=== PATIENT | male | born 1980 | race Caucasian/White ===

== ENCOUNTER 2019-12-07 16:17 | Emergency (ER) | payer OTHER ==
[2019-12-07] MEDS ORDERED: Ketorolac INJ* 30 MG/ML 1 ML VIAL IM ONE (16:43)
[2019-12-07] MEDS ORDERED: Cyclobenzaprine TAB* 10 MG PO ONE (16:44)
--- NOTE | 2019-12-07 16:46 | ED ---
Back Pain - HPI Summary HPI Summary: 39-year-old male presents with back pain for the past couple years. He states that it got worse yesterday after he stood up. He states that his radiates down bilateral legs which is not new. Denies any numbness tingling. He states the pain makes it difficult to ambulate and he often has to use a walker. Denies any new injury. No urinary symptoms. No loss of bowel or bladder. No saddle anesthesia. No fevers. He has a history of end-stage liver disease. He has followed up with primary about this but they did not give referral to [facility] yet. He states he took some Tylenol for the pain with minimal relief. - History of Current Complaint Chief Complaint: EDBackInjuryPain Stated Complaint: BACK PAIN PER EMS Time Seen by Provider: 12/07/19 16:36 Pain Intensity: 8 - Allergies/Home Medications Allergies/Adverse Reactions: Allergies Allergy/AdvReac Type Severity Reaction Status Date / Time adhesive Allergy Blisters Verified 08/10/19 15:00 MS Hydrocodone [From Vicodin] Allergy Rash Verified 08/10/19 14:58 perfume Allergy Rash Verified 08/10/19 15:00 CLOTHING DYE Allergy Rash Uncoded 08/10/19 15:00 Home Medications: Home Medications Bupropion XL* [Wellbutrin XL *] 150 mg PO DAILY 12/07/19 [History Confirmed 06/19] Cholecalciferol (Vitamin D3) [Vitamin D3] 1,000 unit PO DAILY 12/07/19 [History Confirmed 12/07/19] Cyanocobalamin (Vitamin B-12) [Vitamin B-12] 500 mcg SL DAILY 12/07/19 [History Confirmed 12/07/19] Escitalopram * [Lexapro *] 20 mg PO DAILY 12/07/19 [History Confirmed 12/07/19] Magnesium Oxide TAB* [MagOx 400 TAB*] 400 mg PO DAILY 12/07/19 [History Confirmed 12/07/19] Nadolol (NF) 20 mg PO DAILY 12/07/19 [History Confirmed 12/07/19] Pantoprazole TAB * [Protonix TAB*] 40 mg PO DAILY 12/07/19 [History Confirmed ] Potassium Chlor TAB* [Klor Con ER TAB*] 20 meq PO DAILY 12/07/19 [History Confirmed 12/07/19] RiFAXimin* [Xifaxan*] 550 mg PO BID 12/07/19 [History Confirmed 12/07/19] Spironolactone (NF) [Spironolactone 50 MG (NF)] 150 mg PO DAILY 12/07/19 [ History Confirmed 12/07/19] Thiamine TAB* [Vitamin B-1 TAB*] 100 mg PO DAILY 12/07/19 [History Confirmed 06/19] Torsemide TAB* [Demadex*] 20 mg PO DAILY 12/07/19 [History Confirmed 12/07/19] PMH/Surg Hx/FS Hx/Imm Hx Endocrine/Hematology History: Reports: Hx Diabetes - DIET CONTROLLED- states no longer Cardiovascular History: Denies: Hx Hypertension, Hx Pacemaker/ICD GI History: Reports: Hx Cirrhosis, Hx Jaundice, Other GI Disorders - hereditary hemochormatosis History: Denies: Hx Renal Disease Sensory History: Denies: Hx Hearing Aid Neurological History: Reports: Other Neuro Impairments/Disorders - tremor Psychiatric History: Denies: Hx Panic Disorder - Cancer History Hx Hematologic Symptoms: Yes - thrombocytopenia, has bruising and purpura - Surgical History Surgery Procedure, Year, and Place: THROAT VARICES-BANDED PER PT-DR QUEZADA WANTS DX OF THROAT TO CLEAR PATIENT - Immunization History Immunizations Up to Date: Yes Infectious Disease History: Yes Infectious Disease History: Reports: Hx Hepatitis - C- body fought off Denies: Traveled Outside the [place] in Last 30 Days - Family History Known Family History: Positive: Hypertension - Social History Alcohol Use: Occasionally Substance Use Type: Reports: Marijuana Smoking Status (MU): Light Every Day Tobacco Smoker Type: Cigarettes Amount Used/How Often: 1/2 PPD Length of Time of Smoking/Using Tobacco: 21 YRS Have You Smoked in the Last Year: Yes Review of Systems Negative: Fever Negative: Chest Pain Negative: Shortness Of Breath Positive: Myalgia - back pain All Other Systems Reviewed And Are Negative: Yes Physical Exam Triage Information Reviewed: Yes Vital Signs On Initial Exam: Initial Vitals Temp Pulse Resp BP Pulse Ox 96.8 F 80 20 116/79 95 12/07/19 16:17 12/07/19 16:17 12/07/19 16:17 12/07/19 16:17 12/07/19 16:17 Vital Signs Reviewed: Yes Appearance: Positive: Well-Appearing Skin: Positive: Warm, Dry Head/Face: Positive: Normal Head/Face Inspection Eyes: Positive: EOMI, CHASE, Other: - jaundice ENT: Positive: Pharynx normal Respiratory/Lung Sounds: Positive: Clear to Auscultation, Breath Sounds Present Cardiovascular: Positive: Normal, RRR Musculoskeletal: Positive: Limited @ - back, Other - tenderness in lower back, good pulses, sensation grossly intact Neurological: Positive: Normal, Reflexes Intact - patella Psychiatric: Positive: Normal Procedures - Sedation Patient Received Moderate/Deep Sedation with Procedure: No Diagnostics - Vital Signs Vital Signs Temp Pulse Resp BP Pulse Ox 12/07/19 16:17 96.8 F 80 20 116/79 95 - Laboratory Lab Statement: Any lab studies that have been ordered have been reviewed, and results considered in the medical decision making process. - Radiology lumbar Radiology Interpretation Completed By: Radiologist Summary of Radiographic Findings: IMPRESSION: 1. FACET OSTEOARTHRITIS WITH DEGENERATIVE DISC DISEASE MOST PRONOUNCED AT L2-L3. 2. CALCULUS OVERLYING THE RIGHT HEMIPELVIS SUGGESTIVE OF A RIGHT URETERAL STONE. - Ultrasound No standard instances Ultrasound Interpretation Completed By: Radiologist Summary of Ultrasound Findings: IMPRESSION: 1. No hydronephrosis, mass, or documented stone. 2. Nonvisualization of the ureteral jets in the urinary bladder. Re-Evaluation - Re-Evaluation First Eval Re-Evaluation Time: 17:51 Comment: feeling better, does have CVA tenderness bilateral worst on left, will get u/s and urine will potential stone present Second Eval Comment: feeling better, u/s shows no stone Back Pain Course/Dx - Course Course Of Treatment: 39-year-old male presents with back pain for the past couple years. He states that it got worse yesterday after he stood up. He states that his radiates down bilateral legs which is not new. Denies any numbness tingling. He states the pain makes it difficult to ambulate and he often has to use a walker. Denies any new injury. No urinary symptoms. No loss of bowel or bladder. No saddle anesthesia. No fevers. He has a history of end-stage liver disease. He has followed up with primary about this but they did not give referral to [facility] specialists yet. He states he took some Tylenol for the pain with minimal relief. On exam tenderness lower back. Positive straight leg raise. Neurovascularly intact. X-ray shows degenerative changes and potential stone. is tender of right flank but has tenderness over entire back and greatest over left flank. patient does not appear to be a renal stone. renal ultrasound shows no hydro so stone less likely. patient states just does not have to urinate and bladder shows 30cc. He states he urinated a lot earlier wihtout any difficulty. patient states that primary if giving referal to [facility] specialists. discussed should be follow up with GI about cirrhosis as he states has not seen them in a while. told follow up with primary. gave short course of muscle relaxers. patient understand and agrees with plan. - Diagnoses Differential Diagnosis/HQI/PQRI: Positive: Fracture, Herniated Disc, Strain Provider Diagnoses: Back pain Discharge ED - Sign-Out/Discharge Documenting (check all that apply): Patient Departure - Discharge Plan Condition: Good Disposition: HOME Prescriptions: Methocarbamol TAB* [Robaxin 500 MG TAB*] 500 mg PO BID #6 tab Patient Education Materials: Back Pain (ED) Referrals: Jonas Littlejohn MD [Primary Care Provider] - Additional Instructions: Take muscle relaxers twice a day Use ibuprofen or Tylenol for pain every 12 hours sparingly ice/heat area, move as much as possible Follow up with primary within 5 days follow up with your GI doctor Return to ED if develop any new or worsening symptoms - Billing Disposition and Condition Condition: GOOD Disposition: Home
[2019-12-07 20:20] VITALS: BP 126/89
== END 2019-12-07 20:07 | disposition home or self-care (01) ==
LOC: ED 16:17
DX: M54.9 Dorsalgia, unspecified (principal); Z79.899 Other long term (current) drug therapy; F17.210 Nicotine dependence, cigarettes, uncomplicated
CPT/HCPCS: 72110; 76775; 96372; 99282; A9270-GY; J1885

== ENCOUNTER 2020-11-08 21:34 | Inpatient (IN) ==
[2020-11-08 23:15] LABS: ABS Basophils 0.1 10^3/ul (0-0.2); ABS Eosinophils 0.2 10^3/ul (0-0.6); ABS Lymphocytes 1.2 10^3/ul (1.0-4.8); ABS Monocytes 0.9 10^3/ul (0-0.8); ABS Neutrophils 2.6 10^3/ul (1.5-7.7); Eosinophil % 3.4 %; Hematocrit 36 % (42-52); Hemoglobin 12.4 g/dL (14.0-18.0); Lymphocyte % 25.2 %; Mean Corpuscular HGB Conc 34 g/dL (31-36); Mean Corpuscular Hemoglobin 37 pg (27-31); Mean Corpuscular Volume 108 fL (80-94); Mean Platelet Volume 8.8 fL (7.4-10.4); Nucleated Red Blood Cells % 0.1; Platelet Count 102 10^3/uL (150-450); Red Blood Count 3.34 10^6 /uL (4.18-5.48); Red Cell Distribution Width 18 % (10-15)
[2020-11-08 23:22] LABS: INR 2.37 (0.82-1.09)
[2020-11-08 23:29] LABS: ALT 31 U/L (7-52); AST 61 U/L (13-39); Albumin 2.5 g/dL (3.2-5.2); Albumin/Globulin Ratio 0.6 (1-3); Alkaline Phosphatase 168 U/L (34-104); Anion Gap 7 mmol/L (2-11); BUN/Creatinine Ratio 16.5 (8-20); Blood Urea Nitrogen 14 mg/dL (6-24); CO2 Carbon Dioxide 24 mmol/L (22-32); Calcium 8.8 mg/dL (8.6-10.3); Chloride 106 mmol/L (101-111); EGFR African American 121.4 (>60); EGFR Non-African American 100.3 (>60); Globulin 3.9 g/dL (2-4); Glucose 61 mg/dL (70-100); Potassium 3.4 mmol/L (3.5-5.0); Sodium 137 mmol/L (135-145); Total Protein 6.4 g/dL (6.4-8.9)
[2020-11-08 23:32] LABS: Troponin I 0.01 ng/mL (<0.03)
[2020-11-08 23:34] LABS: Acetaminophen < 15 mcg/mL; Alcohol, S < 10 mg/dL (<10); Salicylate < 2.50 mg/dL (<30)
[2020-11-09] MEDS ORDERED: Potassium Chlor 20 meq TAB.ER PO ONE (00:16)
[2020-11-09 00:36] LABS: Urine Appearance Clear; Urine Bilirubin 1+ (Negative); Urine Blood 1+ (Negative); Urine Color Amber; Urine Glucose Negative (Negative); Urine Ketones Trace (Negative); Urine Nitrite Negative (Negative); Urine Protein 1+(30 mg/dL) (Negative); Urine Specific Gravity 1.024 (1.010-1.030); Urine Urobilinogen Positive (Negative)
[2020-11-09 00:41] LABS: Urine Bacteria 1+ (Absent); Urine Benzodiazepine Screen None Detected (None Detect); Urine Cannabinoids Screen Presumptive Positive (None Detect); Urine Opiates Screen None Detected (None Detect); Urine Red Blood Cell 2+(6-10/hpf) (Absent); Urine Squamous Epithelial Cell Present (Absent); Urine White Blood Cell 1+(6-10/hpf) (Absent)
[2020-11-09] MEDS ORDERED: Ondansetron 4 mg VIAL 2 MG/ML 2 ml VIAL IV PRN (00:57)
[2020-11-09] MEDS ORDERED: Dextrose 50% Syringe 50 ml 25 GM/50 ML SYRINGE IV PUSH PRN (00:57)
[2020-11-09] MEDS ORDERED: Dextrose 50% Syringe 50 ml 25 GM/50 ML SYRINGE IV PUSH ONE (01:05)
[2020-11-09] MEDS: cefTRIAXone 1 gm/50 mL NS BAG 1 GM/50 ML BAG IVPB SCH ×2 (02:47→22:26)
[2020-11-09] MEDS: NS 0.9% 1000 ml BAG 1,000 ML IV SCH ×2 (02:47→22:29)
[2020-11-09] MEDS: Lactulose 30 ml UDC PO SCH ×5 (02:47→22:26)
[2020-11-09 07:06] LABS: INR 2.33 (0.82-1.09)
[2020-11-09 07:11] LABS: Hematocrit 35 % (42-52); Hemoglobin 11.8 g/dL (14.0-18.0); Mean Corpuscular HGB Conc 34 g/dL (31-36); Mean Corpuscular Hemoglobin 37 pg (27-31); Mean Corpuscular Volume 109 fL (80-94); Red Blood Count 3.17 10^6 /uL (4.18-5.48); Red Cell Distribution Width 18 % (10-15); White Blood Count 4.5 10^3/uL (3.5-10.8)
[2020-11-09 07:23] LABS: Calcium 8.4 mg/dL (8.6-10.3); EGFR African American 128.4 (>60); EGFR Non-African American 106.1 (>60); Potassium 3.6 mmol/L (3.5-5.0)
[2020-11-09] MEDS: Potassium Chlor 20 meq TAB.ER PO SCH (07:39)
[2020-11-09 07:43] LABS: ABS Eosinophils 0.2 10^3/ul (0-0.6); ABS Lymphocytes 1.4 10^3/ul (1.0-4.8); ABS Monocytes 0.9 10^3/ul (0-0.8); ABS Neutrophils 1.9 10^3/ul (1.5-7.7); Eosinophil % 4.4 %; Lymphocyte % 31.6 %; Nucleated Red Blood Cells % 0.2; Platelet Count 92 10^3/uL (150-450)
[2020-11-09] MEDS ORDERED: Artificial Tear OPHTH.OINT 3.5 GM BOTH EYES PRN (08:45)
[2020-11-09 10:48] LABS: Ferritin 213.5 ng/mL (24-336)
[2020-11-09 11:06] LABS: Total Bilirubin 9.9 mg/dL (0.2-1.0)
[2020-11-09] MEDS: CMCS:Ketorolac 10 mg TAB (NF) PO PRN (12:49)
[2020-11-09] MEDS: Dextran 70/Hypromellose Tears Eye Drops 15 ml BTL (for Artificials Tears) BOTH EYES PRN ×2 (15:47→22:47)
[2020-11-10 05:54] LABS: Hematocrit 34 % (42-52); Hemoglobin 11.5 g/dL (14.0-18.0); Mean Corpuscular HGB Conc 34 g/dL (31-36); Mean Corpuscular Hemoglobin 37 pg (27-31); Mean Corpuscular Volume 109 fL (80-94); Mean Platelet Volume 8.8 fL (7.4-10.4); Platelet Count 85 10^3/uL (150-450); Red Cell Distribution Width 19 % (10-15)
[2020-11-10 05:57] LABS: BUN/Creatinine Ratio 13.5 (8-20); Calcium 8.7 mg/dL (8.6-10.3); EGFR African American 105.5 (>60); EGFR Non-African American 87.2 (>60); Magnesium 1.8 mg/dL (1.9-2.7)
[2020-11-10 07:18] LABS: C Reactive Protein 6.35 mg/L (<8.01)
[2020-11-10] MEDS: Potassium Chlor 20 meq TAB.ER PO SCH (08:16)
[2020-11-10] MEDS: Lactulose 30 ml UDC PO SCH ×3 (08:17→17:31)
[2020-11-10] MEDS: Dextran 70/Hypromellose Tears Eye Drops 15 ml BTL (for Artificials Tears) BOTH EYES PRN (13:28)
[2020-11-10] MEDS: CMCS:Ketorolac 10 mg TAB (NF) PO PRN (13:28)
[2020-11-10 15:11] VITALS: BP 117/60
== END 2020-11-10 17:36 | disposition home or self-care (01) | DRG 279 ==
LOC: ED 21:34 → MEDTELE 11-09 00:50
PROVIDERS: ADMIT Internal Medicine; ATTEND Internal Medicine

== ENCOUNTER 2020-12-08 02:41 | Inpatient (IN) ==
[2020-12-08] MEDS ORDERED: NS 0.9% 1000 ml BAG 1,000 ML IV ONE (02:45)
[2020-12-08] MEDS ORDERED: Lactulose 30 ml UDC PO ONE (02:45)
[2020-12-08 03:10] LABS: Hematocrit 36 % (42-52); Hemoglobin 12.2 g/dL (14.0-18.0); Mean Corpuscular HGB Conc 34 g/dL (31-36); Mean Corpuscular Hemoglobin 36 pg (27-31); Mean Corpuscular Volume 106 fL (80-94); Mean Platelet Volume 9.4 fL (7.4-10.4); Platelet Count 101 10^3/uL (150-450); Red Blood Count 3.38 10^6 /uL (4.18-5.48); Red Cell Distribution Width 17 % (10-15); White Blood Count 4.6 10^3/uL (3.5-10.8)
[2020-12-08 03:24] LABS: Albumin 2.3 g/dL (3.2-5.2); Albumin/Globulin Ratio 0.6 (1-3); BUN/Creatinine Ratio 9.3 (8-20); Calcium 8.3 mg/dL (8.6-10.3); EGFR African American 140.3 (>60); EGFR Non-African American 115.9 (>60); Globulin 4.1 g/dL (2-4); Potassium 4.1 mmol/L (3.5-5.0); Total Bilirubin 7.2 mg/dL (0.2-1.0); Total Protein 6.4 g/dL (6.4-8.9)
[2020-12-08 03:26] LABS: Troponin I 0.01 ng/mL (<0.03)
[2020-12-08] MEDS ORDERED: Ondansetron 4 mg VIAL 2 MG/ML 2 ml VIAL IV PRN (03:57)
[2020-12-08 04:42] LABS: Polychromasia 1+
[2020-12-08 04:44] LABS: ABS Eosinophils 0.5 10^3/ul (0-0.6); ABS Lymphocytes 1.8 10^3/ul (1.0-4.8); ABS Monocytes 0.7 10^3/ul (0-0.8); ABS Neutrophils 1.7 10^3/ul (1.5-7.7); Eosinophil % 9.8 %; Lymphocyte % 37.8 %; Nucleated Red Blood Cells % 0.2
[2020-12-08 05:18] LABS: Urine Appearance Clear; Urine Bilirubin Negative (Negative); Urine Blood 1+ (Negative); Urine Color Amber; Urine Glucose Negative (Negative); Urine Ketones Negative (Negative); Urine Nitrite Negative (Negative); Urine Protein Negative (Negative); Urine Specific Gravity 1.017 (1.010-1.030); Urine Urobilinogen Positive (Negative)
[2020-12-08 05:25] LABS: Urine Benzodiazepine Screen None Detected (None Detect); Urine Cannabinoids Screen None Detected (None Detect); Urine Opiates Screen None Detected (None Detect)
[2020-12-08] MEDS ORDERED: Thiamine 100 MG/ML 2 ml VIAL 100 MG, Folic Acid 1 MG, Multiple Vitamin IV ADULT 10 ML i... IV ONE (05:30)
[2020-12-08 05:55] LABS: Urine Bacteria Absent (Absent); Urine Red Blood Cell 1+(3-5/hpf) (Absent); Urine Squamous Epithelial Cell Present (Absent); Urine White Blood Cell Absent (Absent)
[2020-12-08 06:54] LABS: INR 2.1 (0.82-1.09)
[2020-12-08 07:00] LABS: BUN/Creatinine Ratio 9.7 (8-20); Calcium 8.1 mg/dL (8.6-10.3); EGFR African American 147.1 (>60); EGFR Non-African American 121.5 (>60); Potassium 3.9 mmol/L (3.5-5.0)
[2020-12-08 07:51] LABS: ABS Eosinophils 0.4 10^3/ul (0-0.6); ABS Lymphocytes 1.5 10^3/ul (1.0-4.8); ABS Monocytes 0.8 10^3/ul (0-0.8); ABS Neutrophils 1.7 10^3/ul (1.5-7.7); Eosinophil % 8.3 %; Hematocrit 36 % (42-52); Lymphocyte % 34.6 %; Mean Corpuscular HGB Conc 34 g/dL (31-36); Mean Corpuscular Hemoglobin 36 pg (27-31); Mean Corpuscular Volume 107 fL (80-94); Mean Platelet Volume 9.7 fL (7.4-10.4); Nucleated Red Blood Cells % 0.2; Platelet Count 102 10^3/uL (150-450); Red Blood Count 3.32 10^6 /uL (4.18-5.48); Red Cell Distribution Width 17 % (10-15); White Blood Count 4.4 10^3/uL (3.5-10.8)
[2020-12-08] MEDS: Heparin 5000 UNITS/ML 1 mL VIAL SUBCUT SCH ×3 (08:02→20:11)
[2020-12-08] MEDS: Potassium Chlor 20 meq TAB.ER PO SCH (08:02)
[2020-12-08] MEDS ORDERED: LORazepam 2 mg VIAL 1 ml IV PUSH PRN (09:02)
[2020-12-08] MEDS ORDERED: Lorazepam PYXIS KEY PRN (09:02)
[2020-12-08] MEDS: Multivitamins/Minerals TAB PO SCH (11:32)
[2020-12-08] MEDS: Lactulose 30 ml UDC PO SCH ×4 (11:32→20:11)
[2020-12-08] MEDS ORDERED: Lactulose 300 ML for PR 200 GM/300 ML BTL PR SCH (13:00)
[2020-12-08] MEDS: Lactulose 300 ML for PR 200 GM/300 ML BTL PR SCH ×3 (13:24→20:18)
[2020-12-09] MEDS: Heparin 5000 UNITS/ML 1 mL VIAL SUBCUT SCH ×2 (05:39→13:16)
[2020-12-09 07:25] LABS: ABS Basophils 0.1 10^3/ul (0-0.2); ABS Eosinophils 0.3 10^3/ul (0-0.6); ABS Lymphocytes 1.1 10^3/ul (1.0-4.8); ABS Monocytes 0.6 10^3/ul (0-0.8); ABS Neutrophils 2.1 10^3/ul (1.5-7.7); Eosinophil % 6.3 %; Hematocrit 35 % (42-52); Lymphocyte % 26.8 %; Mean Corpuscular HGB Conc 34 g/dL (31-36); Mean Corpuscular Hemoglobin 37 pg (27-31); Mean Corpuscular Volume 108 fL (80-94); Mean Platelet Volume 9.2 fL (7.4-10.4); Nucleated Red Blood Cells % 0.1; Platelet Count 86 10^3/uL (150-450); Red Blood Count 3.25 10^6 /uL (4.18-5.48); Red Cell Distribution Width 17 % (10-15); White Blood Count 4.2 10^3/uL (3.5-10.8)
[2020-12-09 07:26] LABS: INR 2.07 (0.82-1.09)
[2020-12-09 07:52] LABS: Albumin 2.1 g/dL (3.2-5.2); Calcium 7.8 mg/dL (8.6-10.3); Magnesium 1.6 mg/dL (1.9-2.7); Total Bilirubin 9.2 mg/dL (0.2-1.0)
[2020-12-09 07:58] LABS: Albumin/Globulin Ratio 0.5 (1-3); BUN/Creatinine Ratio 8.2 (8-20); EGFR African American 121.4 (>60); EGFR Non-African American 100.3 (>60); Globulin 4.2 g/dL (2-4); Total Protein 6.3 g/dL (6.4-8.9)
[2020-12-09] MEDS ORDERED: Pneumococcal Vac 23-Polyvalent IM ONE (09:00)
[2020-12-09] MEDS: Lactulose 30 ml UDC PO SCH ×2 (09:15→13:16)
[2020-12-09] MEDS: Multivitamins/Minerals TAB PO SCH (09:16)
[2020-12-09] MEDS: Potassium Chlor 20 meq TAB.ER PO SCH (09:16)
[2020-12-09] MEDS: Lactulose 300 ML for PR 200 GM/300 ML BTL PR SCH ×2 (09:19→13:16)
[2020-12-09 12:20] VITALS: BP 138/75
== END 2020-12-09 16:00 | disposition home or self-care (01) | DRG 279 ==
LOC: ED 02:41 → MEDTELE 03:53
PROVIDERS: ADMIT Internal Medicine; ATTEND Internal Medicine

== ENCOUNTER 2021-05-09 14:26 | Inpatient (IN) ==
[2021-05-09] MEDS ORDERED: Piperacillin/Tazobac ADVAN 3.375 GM in NS 0.9% 100 ml BAG 100 ML IVPB ONE (14:42)
[2021-05-09] MEDS ORDERED: Ondansetron 4 mg VIAL 2 MG/ML 2 ml VIAL IV ONE (14:49)
[2021-05-09] MEDS ORDERED: Vancomycin 2,000 MG in NS 0.9% 250 ml 250 ML IVPB SCH (15:00)
[2021-05-09 15:24] LABS: ALT 11 U/L (7-52); AST 30 U/L (13-39); Albumin 1.9 g/dL (3.2-5.2); Albumin/Globulin Ratio 0.4 (1-3); Alkaline Phosphatase 110 U/L (35-149); Anion Gap 6 mmol/L (2-11); Blood Urea Nitrogen 6 mg/dL (6-24); C Reactive Protein 9.06 mg/L (<8.01); CO2 Carbon Dioxide 26 mmol/L (22-32); Calcium 7.7 mg/dL (8.6-10.3); Chloride 100 mmol/L (101-111); EGFR African American 118.2 (>60); EGFR Non-African American 97.7 (>60); Glucose 98 mg/dL (70-100); Potassium 3.3 mmol/L (3.5-5.0); Sodium 132 mmol/L (135-145); Total Protein 6.9 g/dL (6.4-8.9)
[2021-05-09] MEDS ORDERED: Vancomycin 2,000 MG in NS 0.9% 500 ml BAG 500 ML IVPB ONE (15:30)
[2021-05-09 15:43] LABS: Troponin I 0.03 ng/mL (<0.03)
[2021-05-09 15:48] LABS: Acetaminophen < 15 mcg/mL; Alcohol, S 48 mg/dL (<10); Salicylate < 2.50 mg/dL (<30)
[2021-05-09 15:50] LABS: ABS Lymphocytes 0.6 10^3/ul (1.0-4.8); ABS Monocytes 0.5 10^3/ul (0-0.8); ABS Neutrophils 4.8 10^3/ul (1.5-7.7); Hematocrit 28 % (42-52); Hemoglobin 9.6 g/dL (14.0-18.0); Lymphocyte % 10.3 %; Mean Corpuscular HGB Conc 34 g/dL (31-36); Mean Corpuscular Hemoglobin 35 pg (27-31); Mean Corpuscular Volume 104 fL (80-94); Platelet Count 84 10^3/uL (150-450); Red Blood Count 2.73 10^6 /uL (4.18-5.48); Red Cell Distribution Width 22 % (10-15); White Blood Count 5.9 10^3/uL (3.5-10.8)
[2021-05-09 16:03] LABS: TSH Ultra Thyroid Stim Horm 0.33 mcIU/mL (0.34-5.60)
[2021-05-09] MEDS ORDERED: NS 0.9% 1000 ml BAG 1,000 ML IV ONE ×2 (16:26)
[2021-05-09] MEDS ORDERED: Ondansetron 4 mg VIAL 2 MG/ML 2 ml VIAL IV PRN (18:38)
[2021-05-09] MEDS ORDERED: Al Hydrox/Mg Hydrox/Simet LIQ 30 ML UDC PO PRN (18:38)
[2021-05-09] MEDS ORDERED: Enoxaparin 40 MG/0.4 ML SYR SUBCUT SCH (21:00)
[2021-05-10 03:41] LABS: ABS Lymphocytes 0.7 10^3/ul (1.0-4.8); ABS Monocytes 0.7 10^3/ul (0-0.8); ABS Neutrophils 4.7 10^3/ul (1.5-7.7); Eosinophil % 0.2 %; Hematocrit 27 % (42-52); Hemoglobin 9.2 g/dL (14.0-18.0); Lymphocyte % 12.2 %; Mean Corpuscular HGB Conc 35 g/dL (31-36); Mean Corpuscular Hemoglobin 36 pg (27-31); Mean Corpuscular Volume 103 fL (80-94); Mean Platelet Volume 9.2 fL (7.4-10.4); Nucleated Red Blood Cells % 0.1; Platelet Count 81 10^3/uL (150-450); Red Blood Count 2.58 10^6 /uL (4.18-5.48); Red Cell Distribution Width 21 % (10-15); White Blood Count 6.1 10^3/uL (3.5-10.8)
[2021-05-10] MEDS: Multivitamins/Minerals TAB PO SCH ×2 (03:46→10:04)
[2021-05-10] MEDS: Lactulose 30 ml UDC PO SCH ×4 (03:50→19:24)
[2021-05-10 04:03] LABS: Troponin I 0.03 ng/mL (<0.03)
[2021-05-10 04:19] LABS: Albumin 1.7 g/dL (3.2-5.2); Anion Gap 3 mmol/L (2-11); CO2 Carbon Dioxide 26 mmol/L (22-32); Calcium 7.3 mg/dL (8.6-10.3); Chloride 100 mmol/L (101-111); Potassium 3.4 mmol/L (3.5-5.0); Sodium 129 mmol/L (135-145)
[2021-05-10 04:25] LABS: ALT 11 U/L (7-52); AST 32 U/L (13-39); Albumin/Globulin Ratio 0.3 (1-3); Alkaline Phosphatase 104 U/L (35-149); Blood Urea Nitrogen 8 mg/dL (6-24); EGFR African American 99.5 (>60); EGFR Non-African American 82.2 (>60); Globulin 4.9 g/dL (2-4); Glucose 100 mg/dL (70-100); Total Protein 6.6 g/dL (6.4-8.9)
[2021-05-10 04:44] LABS: Polychromasia 1+
[2021-05-10 04:58] LABS: Urine Appearance Turbid; Urine Color Red; Urine Specific Gravity 1.024 (1.002-1.030)
[2021-05-10 05:10] LABS: Urine Bacteria Absent (Absent); Urine Red Blood Cell 3+(>10/hpf) (Absent); Urine White Blood Cell 3+(>20/hpf) (Absent)
[2021-05-10] MEDS ORDERED: Magnesium Sulfate 2 gm BAG 2 GM/50 ML BAG IVPB ONE (08:07)
[2021-05-10] MEDS: KCL 10 MEQ/50 ML IVPREMIX 10 MEQ/50 ML BAG IV SCH ×3 (09:49→20:22)
[2021-05-10] MEDS: Enoxaparin 40 MG/0.4 ML SYR SUBCUT SCH (10:02)
[2021-05-10] MEDS: Cholecalciferol (VIT D3) 1,000 unit TAB PO SCH (10:03)
[2021-05-10 10:16] LABS: Troponin I 0.02 ng/mL (<0.03)
[2021-05-10 12:22] LABS: CO2 Carbon Dioxide 21 mmol/L (22-32); Calcium 7.4 mg/dL (8.6-10.3); Chloride 100 mmol/L (101-111); Sodium 129 mmol/L (135-145)
[2021-05-10 12:28] LABS: Blood Urea Nitrogen 9 mg/dL (6-24); EGFR African American 97.3 (>60); EGFR Non-African American 80.4 (>60); Glucose 109 mg/dL (70-100)
[2021-05-10 13:14] LABS: Anion Gap 8 mmol/L (2-11)
[2021-05-10 19:39] LABS: Magnesium 1.5 mg/dL (1.9-2.7)
[2021-05-10] MEDS ORDERED: Magnesium Sulfate IV 3 GM in NS 0.9% 100 ml BAG 100 ML IVPB ONE (19:56)
[2021-05-10] MEDS ORDERED: KCL premix 10 MEQ/50 ML x 1 TIME IV ONE (21:00)
[2021-05-11 07:38] LABS: Hematocrit 27 % (42-52); Hemoglobin 9.5 g/dL (14.0-18.0); Mean Corpuscular HGB Conc 36 g/dL (31-36); Mean Corpuscular Hemoglobin 37 pg (27-31); Mean Corpuscular Volume 103 fL (80-94); Mean Platelet Volume 9.3 fL (7.4-10.4); Platelet Count 80 10^3/uL (150-450); Red Blood Count 2.61 10^6 /uL (4.18-5.48); Red Cell Distribution Width 21 % (10-15)
[2021-05-11 07:39] LABS: Calcium 7.5 mg/dL (8.6-10.3); EGFR African American 58.5 (>60); EGFR Non-African American 48.4 (>60); Magnesium 1.7 mg/dL (1.9-2.7); Potassium 3.2 mmol/L (3.5-5.0)
[2021-05-11] MEDS ORDERED: Magnesium Sulf 4 GM/100 ML IV 4,000 MG/100 ML BAG IVPB ONE (07:56)
[2021-05-11 08:33] LABS: Polychromasia 1+
[2021-05-11 08:34] LABS: ABS Eosinophils 0.2 10^3/ul (0-0.6); ABS Lymphocytes 1.1 10^3/ul (1.0-4.8); ABS Monocytes 0.9 10^3/ul (0-0.8); ABS Neutrophils 2.8 10^3/ul (1.5-7.7); Eosinophil % 3.3 %; Lymphocyte % 21.7 %; Nucleated Red Blood Cells % 0.2
[2021-05-11] MEDS: Cholecalciferol (VIT D3) 1,000 unit TAB PO SCH (08:38)
[2021-05-11] MEDS: Multivitamins/Minerals TAB PO SCH (08:39)
[2021-05-11] MEDS: Enoxaparin 40 MG/0.4 ML SYR SUBCUT SCH (08:39)
[2021-05-11] MEDS: Lactulose 30 ml UDC PO SCH ×3 (08:40→20:20)
[2021-05-11] MEDS: KCL 10 MEQ/50 ML IVPREMIX 10 MEQ/50 ML BAG IV SCH ×2 (11:07→11:40)
[2021-05-11] MEDS: KCL 20 MEQ/100 ML IVPREMIX 20 MEQ/100 ML BAG IV SCH ×3 (11:52→16:47)
[2021-05-11 16:42] LABS: Calcium 7.7 mg/dL (8.6-10.3); EGFR African American 51.4 (>60); EGFR Non-African American 42.5 (>60); Potassium 3.4 mmol/L (3.5-5.0)
[2021-05-11] MEDS ORDERED: Potassium Chlor 20 meq TAB.ER PO ONE (17:39)
[2021-05-11] MEDS ORDERED: KCL 20 MEQ/100 ML IVPREMIX 20 MEQ/100 ML BAG IV ONE (20:21)
[2021-05-11] MEDS ORDERED: Magnesium Sulfate 2 gm BAG 2 GM/50 ML BAG IVPB ONE (20:24)
[2021-05-11 20:26] LABS: Magnesium 2.2 mg/dL (1.9-2.7)
[2021-05-12 06:11] LABS: Calcium 7.7 mg/dL (8.6-10.3)
[2021-05-12 06:16] LABS: EGFR African American 47.4 (>60); EGFR Non-African American 39.2 (>60)
[2021-05-12 06:38] LABS: Potassium 3.6 mmol/L (3.5-5.0)
[2021-05-12] MEDS: Lactulose 30 ml UDC PO SCH ×3 (09:43→21:36)
[2021-05-12] MEDS: Cholecalciferol (VIT D3) 1,000 unit TAB PO SCH (09:46)
[2021-05-12] MEDS: Enoxaparin 40 MG/0.4 ML SYR SUBCUT SCH (09:47)
[2021-05-12] MEDS: Multivitamins/Minerals TAB PO SCH (09:47)
[2021-05-12 19:28] LABS: Urine Appearance Cloudy; Urine Bilirubin Negative (Negative); Urine Blood 3+ (Negative); Urine Color Amber; Urine Glucose Negative (Negative); Urine Ketones Negative (Negative); Urine Nitrite Negative (Negative); Urine Protein Negative (Negative); Urine Specific Gravity 1.012 (1.002-1.030); Urine Urobilinogen Negative (Negative)
[2021-05-12 19:32] LABS: Urine Bacteria 1+ (Absent); Urine Red Blood Cell 3+(>10/hpf) (Absent); Urine Squamous Epithelial Cell Present (Absent); Urine White Blood Cell 2+(11-20/hpf) (Absent)
[2021-05-13 06:00] LABS: ABS Eosinophils 0.3 10^3/ul (0-0.6); ABS Lymphocytes 1.5 10^3/ul (1.0-4.8); ABS Neutrophils 1.8 10^3/ul (1.5-7.7); Hematocrit 28 % (42-52); Hemoglobin 9.5 g/dL (14.0-18.0); Lymphocyte % 32.7 %; Mean Corpuscular HGB Conc 35 g/dL (31-36); Mean Corpuscular Hemoglobin 36 pg (27-31); Mean Corpuscular Volume 103 fL (80-94); Mean Platelet Volume 9.2 fL (7.4-10.4); Nucleated Red Blood Cells % 0.1; Platelet Count 90 10^3/uL (150-450); Red Blood Count 2.67 10^6 /uL (4.18-5.48); Red Cell Distribution Width 22 % (10-15); White Blood Count 4.7 10^3/uL (3.5-10.8)
[2021-05-13 06:04] LABS: Calcium 7.9 mg/dL (8.6-10.3); EGFR Non-African American 37.2 (>60); Potassium 3.5 mmol/L (3.5-5.0)
[2021-05-13] MEDS: Enoxaparin 40 MG/0.4 ML SYR SUBCUT SCH (08:26)
[2021-05-13] MEDS: Lactulose 30 ml UDC PO SCH ×3 (08:26→20:10)
[2021-05-13] MEDS: Cholecalciferol (VIT D3) 1,000 unit TAB PO SCH (08:28)
[2021-05-13] MEDS: Multivitamins/Minerals TAB PO SCH (08:29)
[2021-05-14 04:59] LABS: Hematocrit 28 % (42-52); Hemoglobin 9.5 g/dL (14.0-18.0)
[2021-05-14 05:10] LABS: INR 1.75 (0.82-1.09)
[2021-05-14 05:39] LABS: Albumin 1.9 g/dL (3.2-5.2); Albumin/Globulin Ratio 0.4 (1-3); Calcium 8.3 mg/dL (8.6-10.3); EGFR African American 43.5 (>60); EGFR Non-African American 35.9 (>60); Globulin 5.3 g/dL (2-4); Potassium 3.4 mmol/L (3.5-5.0); Total Bilirubin 4.1 mg/dL (0.2-1.0); Total Protein 7.2 g/dL (6.4-8.9)
[2021-05-14 06:38] LABS: Indirect Bilirubin 2.3 mg/dL (0.3-1.0)
[2021-05-14] MEDS: Multivitamins/Minerals TAB PO SCH (08:37)
[2021-05-14] MEDS: Cholecalciferol (VIT D3) 1,000 unit TAB PO SCH (08:37)
[2021-05-14] MEDS: Lactulose 30 ml UDC PO SCH ×3 (08:38→20:49)
[2021-05-14] MEDS: Enoxaparin 40 MG/0.4 ML SYR SUBCUT SCH (08:38)
[2021-05-14 09:37] LABS: Magnesium 1.7 mg/dL (1.9-2.7)
[2021-05-14 09:42] LABS: Phosphorus 4.1 mg/dL (2.5-5.0)
[2021-05-14] MEDS ORDERED: Potassium Chlor 20 meq TAB.ER PO ONE (15:34)
[2021-05-14] MEDS ORDERED: Magnesium Sulf 4 GM/100 ML IV 4,000 MG/100 ML BAG IVPB ONE (18:45)
[2021-05-15 06:34] LABS: ABS Basophils 0.1 10^3/ul (0-0.2); ABS Eosinophils 0.3 10^3/ul (0-0.6); ABS Lymphocytes 1.5 10^3/ul (1.0-4.8); ABS Monocytes 0.9 10^3/ul (0-0.8); ABS Neutrophils 2.4 10^3/ul (1.5-7.7); Hematocrit 30 % (42-52); Hemoglobin 10.5 g/dL (14.0-18.0); Mean Corpuscular HGB Conc 35 g/dL (31-36); Mean Corpuscular Hemoglobin 36 pg (27-31); Mean Corpuscular Volume 103 fL (80-94); Mean Platelet Volume 9.5 fL (7.4-10.4); Nucleated Red Blood Cells % 0.2; Platelet Count 114 10^3/uL (150-450); Red Blood Count 2.89 10^6 /uL (4.18-5.48); Red Cell Distribution Width 20 % (10-15); White Blood Count 5.1 10^3/uL (3.5-10.8)
[2021-05-15 06:58] LABS: Potassium 3.5 mmol/L (3.5-5.0)
[2021-05-15] MEDS: Cholecalciferol (VIT D3) 1,000 unit TAB PO SCH (08:18)
[2021-05-15] MEDS: Multivitamins/Minerals TAB PO SCH (08:18)
[2021-05-15] MEDS: Enoxaparin 40 MG/0.4 ML SYR SUBCUT SCH (08:22)
[2021-05-15] MEDS: Lactulose 30 ml UDC PO SCH ×3 (08:57→19:54)
[2021-05-16 09:25] LABS: ABS Eosinophils 0.3 10^3/ul (0-0.6); ABS Lymphocytes 1.5 10^3/ul (1.0-4.8); ABS Monocytes 0.8 10^3/ul (0-0.8); Eosinophil % 5.6 %; Hematocrit 29 % (42-52); Hemoglobin 10.1 g/dL (14.0-18.0); Lymphocyte % 33.7 %; Mean Corpuscular HGB Conc 34 g/dL (31-36); Mean Corpuscular Hemoglobin 36 pg (27-31); Mean Corpuscular Volume 104 fL (80-94); Mean Platelet Volume 9.5 fL (7.4-10.4); Nucleated Red Blood Cells % 0.1; Platelet Count 113 10^3/uL (150-450); Red Blood Count 2.83 10^6 /uL (4.18-5.48); Red Cell Distribution Width 19 % (10-15); White Blood Count 4.6 10^3/uL (3.5-10.8)
[2021-05-16 09:50] LABS: Calcium 9.1 mg/dL (8.6-10.3); EGFR African American 46.3 (>60); EGFR Non-African American 38.3 (>60); Potassium 3.6 mmol/L (3.5-5.0)
[2021-05-16] MEDS: Cholecalciferol (VIT D3) 1,000 unit TAB PO SCH (12:25)
[2021-05-16] MEDS: Lactulose 30 ml UDC PO SCH ×3 (12:29→21:14)
[2021-05-16] MEDS: Multivitamins/Minerals TAB PO SCH (12:31)
[2021-05-16] MEDS: Enoxaparin 40 MG/0.4 ML SYR SUBCUT SCH (12:33)
[2021-05-17 07:11] LABS: Albumin 1.8 g/dL (3.2-5.2); Albumin/Globulin Ratio 0.3 (1-3); EGFR African American 46.9 (>60); EGFR Non-African American 38.7 (>60); Globulin 5.3 g/dL (2-4); Potassium 3.3 mmol/L (3.5-5.0); Total Protein 7.1 g/dL (6.4-8.9)
[2021-05-17] MEDS ORDERED: Potassium Chlor 20 meq TAB.ER PO ONE (07:43)
[2021-05-17] MEDS: Lactulose 30 ml UDC PO SCH (08:12)
[2021-05-17] MEDS: Multivitamins/Minerals TAB PO SCH (08:13)
[2021-05-17] MEDS: Cholecalciferol (VIT D3) 1,000 unit TAB PO SCH (08:13)
[2021-05-17] MEDS: Enoxaparin 40 MG/0.4 ML SYR SUBCUT SCH (08:14)
[2021-05-17 11:59] VITALS: BP 122/62
== END 2021-05-17 11:55 | disposition home or self-care (01) | DRG 279 ==
LOC: EDHOLD 14:26 → ED 14:26 → MEDTELE 05-10 02:35
PROVIDERS: ADMIT Hospitalist; ATTEND Internal Medicine

== ENCOUNTER 2021-08-06 12:07 | Inpatient (IN) ==
[2021-08-06] MEDS ORDERED: Thiamine 100 MG/ML 2 ml VIAL 100 MG, Folic Acid IV 1 MG, Multiple Vitamin IV ADULT 10 M... IV ONE (12:11)
[2021-08-06 12:36] LABS: Hematocrit 31 % (42-52); Hemoglobin 10.5 g/dL (14.0-18.0); Mean Corpuscular HGB Conc 34 g/dL (31-36); Mean Corpuscular Hemoglobin 34 pg (27-31); Mean Corpuscular Volume 99 fL (80-94); Mean Platelet Volume 9.6 fL (7.4-10.4); Platelet Count 191 10^3/uL (150-450); Red Blood Count 3.14 10^6 /uL (4.18-5.48); Red Cell Distribution Width 16 % (10-15); White Blood Count 5.2 10^3/uL (3.5-10.8)
[2021-08-06 12:59] LABS: ALT 18 U/L (7-52); Albumin 2.6 g/dL (3.2-5.2); Albumin/Globulin Ratio 0.5 (1-3); Alkaline Phosphatase 194 U/L (35-149); Blood Urea Nitrogen 6 mg/dL (6-24); CO2 Carbon Dioxide 27 mmol/L (22-32); Calcium 8.6 mg/dL (8.6-10.3); Chloride 102 mmol/L (101-111); EGFR African American 86.5 (>60); EGFR Non-African American 71.5 (>60); Globulin 5.7 g/dL (2-4); Glucose 104 mg/dL (70-100); Sodium 135 mmol/L (135-145); Total Protein 8.3 g/dL (6.4-8.9)
[2021-08-06 13:01] LABS: INR 1.68 (0.86-1.15)
[2021-08-06 13:01] LABS: Urine Appearance Clear; Urine Bilirubin Negative (Negative); Urine Blood 2+ (Negative); Urine Color Straw; Urine Glucose Negative (Negative); Urine Ketones Negative (Negative); Urine Nitrite Negative (Negative); Urine Protein Negative (Negative); Urine Specific Gravity 1.004 (1.002-1.030); Urine Urobilinogen Negative (Negative)
[2021-08-06 13:04] LABS: Troponin I 0.01 ng/mL (<0.03)
[2021-08-06 13:18] LABS: Urine Bacteria Absent (Absent); Urine Red Blood Cell 3+(>10/hpf) (Absent); Urine White Blood Cell Absent (Absent)
[2021-08-06 13:20] LABS: Alcohol, S 116 mg/dL (<13); Salicylate < 2.50 mg/dL (<30)
[2021-08-06 13:27] LABS: Anion Gap 6 mmol/L (2-11)
[2021-08-06 14:32] LABS: Potassium Redraw 3.4 mmol/L (3.5-5.0)
[2021-08-06] MEDS ORDERED: Lactulose 30 ml UDC PO ONE (15:05)
[2021-08-06 15:43] LABS: RBC Morphology Normal (Normal)
[2021-08-06 15:44] LABS: ABS Eosinophils 0.6 10^3/ul (0-0.6); ABS Lymphocytes 1.5 10^3/ul (1.0-4.8); ABS Monocytes 0.7 10^3/ul (0-0.8); ABS Neutrophils 2.4 10^3/ul (1.5-7.7); Eosinophil % 10.9 %; Lymphocyte % 28.5 %
[2021-08-06] MEDS ORDERED: Lactulose 300 ML for PR 200 GM/300 ML BTL PR SCH (17:00)
[2021-08-06] MEDS ORDERED: Lorazepam PYXIS KEY PRN (17:20)
[2021-08-06] MEDS ORDERED: LORazepam 2 mg VIAL 1 ml IV PUSH ONE (17:20)
[2021-08-06] MEDS ORDERED: Potassium Chlor 20 meq TAB.ER PO ONE (18:47)
[2021-08-06] MEDS ORDERED: Albuterol HFA INHALER 8 gm MDI INH PRN (19:43)
[2021-08-06] MEDS ORDERED: Dexamethasone IV 4 MG/ML VIAL 1 ml VIAL IV SLOW PU SCH (20:00)
[2021-08-06] MEDS: Lactulose 30 ml UDC PO SCH (20:37)
[2021-08-06] MEDS: Heparin 5000 UNITS/ML 1 mL VIAL SUBCUT SCH (20:38)
[2021-08-07] MEDS: Nystatin TOP POWDER 15 GM BTL TOPICAL SCH ×3 (01:34→20:54)
[2021-08-07] MEDS: Dexamethasone IV 4 MG/ML VIAL 1 ml VIAL IV SLOW PU SCH ×2 (03:21→09:43)
[2021-08-07] MEDS: Heparin 5000 UNITS/ML 1 mL VIAL SUBCUT SCH ×3 (05:15→20:54)
[2021-08-07 07:57] LABS: ABS Lymphocytes 0.7 10^3/ul (1.0-4.8); ABS Monocytes 0.1 10^3/ul (0-0.8); ABS Neutrophils 3.2 10^3/ul (1.5-7.7); Eosinophil % 0.1 %; Hematocrit 29 % (42-52); Hemoglobin 9.9 g/dL (14.0-18.0); Lymphocyte % 18.8 %; Mean Corpuscular HGB Conc 35 g/dL (31-36); Mean Corpuscular Hemoglobin 34 pg (27-31); Mean Corpuscular Volume 99 fL (80-94); Mean Platelet Volume 9.1 fL (7.4-10.4); Nucleated Red Blood Cells % 0.1; Platelet Count 154 10^3/uL (150-450); Red Cell Distribution Width 16 % (10-15)
[2021-08-07 08:00] LABS: INR 1.89 (0.86-1.15)
[2021-08-07 08:10] LABS: Albumin 2.2 g/dL (3.2-5.2); Albumin/Globulin Ratio 0.4 (1-3); Calcium 8.2 mg/dL (8.6-10.3); EGFR African American 75.7 (>60); EGFR Non-African American 62.6 (>60); Globulin 5.1 g/dL (2-4); Potassium 3.5 mmol/L (3.5-5.0); Total Bilirubin 5.1 mg/dL (0.2-1.0); Total Protein 7.3 g/dL (6.4-8.9)
[2021-08-07] MEDS: Multivitamins/Minerals TAB PO SCH (09:42)
[2021-08-07] MEDS: Potassium Chlor 20 meq TAB.ER PO SCH (09:43)
[2021-08-07] MEDS: Lactulose 30 ml UDC PO SCH ×3 (09:43→20:54)
[2021-08-07 09:44] LABS: Magnesium 1.3 mg/dL (1.9-2.7)
[2021-08-07] MEDS ORDERED: KCL 20 MEQ/100 ML IVPREMIX 20 MEQ/100 ML BAG IV ONE ×2 (09:44→14:28)
[2021-08-07] MEDS ORDERED: Magnesium Sulfate IV 3 GM in NS 0.9% 100 ml BAG 100 ML IVPB ONE (14:27)
[2021-08-07] MEDS: LORazepam 2 mg VIAL 1 ml IV PUSH SCH (20:54)
[2021-08-08] MEDS: LORazepam 2 mg VIAL 1 ml IV PUSH SCH (01:03)
[2021-08-08 06:02] LABS: Albumin 2.2 g/dL (3.2-5.2); Albumin/Globulin Ratio 0.4 (1-3); Calcium 8.4 mg/dL (8.6-10.3); EGFR African American 56.5 (>60); EGFR Non-African American 46.7 (>60); Magnesium 1.9 mg/dL (1.9-2.7); Potassium 3.6 mmol/L (3.5-5.0); Total Bilirubin 4.9 mg/dL (0.2-1.0); Total Protein 7.2 g/dL (6.4-8.9)
[2021-08-08] MEDS: Heparin 5000 UNITS/ML 1 mL VIAL SUBCUT SCH ×3 (09:14→21:19)
[2021-08-08] MEDS: Multivitamins/Minerals TAB PO SCH (09:14)
[2021-08-08] MEDS: Nystatin TOP POWDER 15 GM BTL TOPICAL SCH ×2 (09:14→21:27)
[2021-08-08] MEDS: Lactulose 30 ml UDC PO SCH ×3 (09:14→21:26)
[2021-08-08] MEDS: Potassium Chlor 20 meq TAB.ER PO SCH (09:15)
[2021-08-08] MEDS ORDERED: Magnesium Sulfate 2 gm BAG 2 GM/50 ML BAG IVPB ONE (13:51)
[2021-08-08] MEDS ORDERED: KCL 10 MEQ/50 ML IVPREMIX 10 MEQ/50 ML BAG IV ONE (13:51)
[2021-08-09 05:15] LABS: Albumin 2.2 g/dL (3.2-5.2); Albumin/Globulin Ratio 0.4 (1-3); Calcium 8.2 mg/dL (8.6-10.3); EGFR African American 61.2 (>60); EGFR Non-African American 50.5 (>60); Globulin 4.9 g/dL (2-4); Magnesium 1.8 mg/dL (1.9-2.7); Potassium 3.3 mmol/L (3.5-5.0); Total Bilirubin 3.6 mg/dL (0.2-1.0); Total Protein 7.1 g/dL (6.4-8.9)
[2021-08-09] MEDS: Heparin 5000 UNITS/ML 1 mL VIAL SUBCUT SCH ×2 (05:23→13:32)
[2021-08-09] MEDS ORDERED: Magnesium Sulfate IV 3 GM in NS 0.9% 100 ml BAG 100 ML IVPB ONE (05:56)
[2021-08-09] MEDS: KCL 20 MEQ/100 ML IVPREMIX 20 MEQ/100 ML BAG IV SCH ×2 (10:35→13:48)
[2021-08-09] MEDS: Potassium Chlor 20 meq TAB.ER PO SCH (10:43)
[2021-08-09] MEDS: Lactulose 30 ml UDC PO SCH ×3 (10:43→13:33)
[2021-08-09] MEDS: Multivitamins/Minerals TAB PO SCH (10:43)
[2021-08-09] MEDS: Nystatin TOP POWDER 15 GM BTL TOPICAL SCH (10:44)
[2021-08-09 14:59] VITALS: BP 113/57
== END 2021-08-09 18:05 | disposition home or self-care (01) | DRG 279 ==
LOC: MED 12:07 → ED 12:07 → SUATTDRO 17:52
PROVIDERS: ADMIT Student in an Organized Health Care Education/Training Program; ATTEND Internal Medicine

== ENCOUNTER 2022-02-27 21:06 | Inpatient (IN) ==
[2022-02-27 23:13] LABS: Activated Partial Thrombo Time 43.1 seconds (26.0-38.0); INR 2.56 (0.86-1.15)
[2022-02-27] MEDS ORDERED: Lactated Ringers 1000 ml BAG 1,000 ML IV ONE (23:14)
[2022-02-27 23:54] LABS: Albumin 2.1 g/dL (3.2-5.2); Albumin/Globulin Ratio 0.4 (1-3); C Reactive Protein 2.86 mg/L (<8.01); Calcium 7.1 mg/dL (8.6-10.3); Globulin 4.7 g/dL (2-4); Total Bilirubin 10.2 mg/dL (0.2-1.0); Total Protein 6.8 g/dL (6.4-8.9); eGFR CKD-EPI 86.1 (>60)
[2022-02-28 00:02] LABS: Potassium 2.4 mmol/L (3.5-5.0)
[2022-02-28] MEDS ORDERED: Potassium Chlor 20 meq TAB.ER PO ONE (00:07)
[2022-02-28 00:31] LABS: ABS Eosinophils 0.2 10^3/ul (0-0.6); ABS Lymphocytes 0.9 10^3/ul (1.0-4.8); ABS Monocytes 0.9 10^3/ul (0-0.8); Hematocrit 32 % (42-52); Hemoglobin 10.7 g/dL (14.0-18.0); Lymphocyte % 18.1 %; Mean Corpuscular HGB Conc 34 g/dL (31-36); Mean Corpuscular Hemoglobin 36 pg (27-31); Mean Corpuscular Volume 107 fL (80-94); Mean Platelet Volume 8.5 fL (7.4-10.4); Nucleated Red Blood Cells % 0.1; Platelet Count 80 10^3/uL (150-450); Red Blood Count 2.96 10^6 /uL (4.18-5.48); Red Cell Distribution Width 16 % (10-15); White Blood Count 5.1 10^3/uL (3.5-10.8)
[2022-02-28 00:45] LABS: High Sensitivity Troponin 1 Hr 47 pg/mL (<20)
[2022-02-28] MEDS: KCL 10 MEQ/50 ML IVPREMIX 10 MEQ/50 ML BAG IV SCH ×3 (01:02→03:28)
[2022-02-28 03:08] LABS: Urine Appearance Cloudy; Urine Bilirubin 1+ (Negative); Urine Blood 2+ (Negative); Urine Color Amber; Urine Glucose Negative (Negative); Urine Ketones Negative (Negative); Urine Nitrite Negative (Negative); Urine Protein Negative (Negative); Urine Specific Gravity 1.015 (1.002-1.030); Urine Urobilinogen Positive (Negative)
[2022-02-28 03:12] LABS: Urine Bacteria 1+ (Absent); Urine Red Blood Cell 2+(6-10/hpf) (Absent); Urine Squamous Epithelial Cell Present (Absent); Urine White Blood Cell 3+(>20/hpf) (Absent)
[2022-02-28] MEDS ORDERED: cefTRIAXone 1 gm/50 mL D5W 1 GM/50 ML BAG IV ONE (03:24)
[2022-02-28] MEDS ORDERED: Lactulose 30 ml UDC PO ONE (03:40)
[2022-02-28 03:57] LABS: Magnesium 1.2 mg/dL (1.9-2.7)
[2022-02-28 04:49] LABS: Osmolality Serum 291 mOsm/kg (275-295)
[2022-02-28] MEDS: Lactated Ringers 1000 ml BAG 1,000 ML IV SCH (05:10)
[2022-02-28] MEDS ORDERED: Magnesium Sulfate IV 3 GM in NS 0.9% 100 ml BAG 100 ML IVPB ONE (05:31)
[2022-02-28] MEDS ORDERED: Magnesium Sulfate 1 GM IV 1 GM/100 ML BAG IV ONE (05:45)
[2022-02-28 05:52] LABS: Hematocrit 31 % (42-52); Hemoglobin 10.8 g/dL (14.0-18.0); Mean Corpuscular HGB Conc 35 g/dL (31-36); Mean Corpuscular Hemoglobin 38 pg (27-31); Mean Corpuscular Volume 108 fL (80-94); Mean Platelet Volume 9.1 fL (7.4-10.4); Platelet Count 75 10^3/uL (150-450); Red Blood Count 2.86 10^6 /uL (4.18-5.48); Red Cell Distribution Width 17 % (10-15)
[2022-02-28] MEDS ORDERED: Magnesium Sulfate 2 GM IV (Premix) IVPB ONE (06:15)
[2022-02-28] MEDS ORDERED: LORazepam 2 mg VIAL 1 ml IV PUSH ONE ×3 (06:35→12:23)
[2022-02-28] MEDS ORDERED: Lorazepam PYXIS KEY PRN ×3 (06:35→12:23)
[2022-02-28 06:52] LABS: Protime (Maddrey) 29.3 seconds (9.5-12.8)
[2022-02-28] MEDS ORDERED: LORazepam 2 mg VIAL 1 ml IV PUSH SCH (07:00)
[2022-02-28 07:12] LABS: Magnesium 1.9 mg/dL (1.9-2.7); eGFR CKD-EPI 82.5 (>60)
[2022-02-28 07:14] LABS: Potassium 2.5 mmol/L (3.5-5.0)
[2022-02-28] MEDS ORDERED: Thiamine 100 MG/ML 2 ml VIAL 100 MG, Folic Acid IV 1 MG, Multiple Vitamin IV ADULT 10 M... IV ONE (07:20)
[2022-02-28] MEDS ORDERED: Potassium Chloride LIQUID 20 MEQ/15 ML LIQUID PO ONE ×2 (08:07→14:00)
[2022-02-28 08:18] LABS: Total Bilirubin 10.3 mg/dL (0.2-1.0)
[2022-02-28] MEDS: KCL 20 MEQ/100 ML IVPREMIX 20 MEQ/100 ML BAG IV SCH ×2 (08:32→14:38)
[2022-02-28] MEDS ORDERED: LACTULOSE PO SCH (09:00)
[2022-02-28] MEDS: Lactulose 30 ml UDC PO SCH ×3 (10:32→20:07)
[2022-02-28] MEDS: Enoxaparin 40 MG/0.4 ML SYR SUBCUT SCH (10:47)
[2022-02-28] MEDS ORDERED: LORazepam 2 mg VIAL 1 ml ONE ×2 (11:05→12:23)
[2022-02-28] MEDS ORDERED: Succinylcholine 200 mg VIAL 20 mg/ml 10 ml VIAL (200 mg) ONE (11:14)
[2022-02-28] MEDS ORDERED: Rocuronium 50 mg VIAL 10 mg/ml 5 ml VIAL (50 mg) ONE ×2 (11:26→11:34)
[2022-02-28] MEDS ORDERED: Propofol 10 mg/ml 100 ML BTL 100 ML ONE (11:28)
[2022-02-28] MEDS ORDERED: fentaNYL 250 mcg/5 ml 50 MCG/ML 5 ml VIAL (250 MCG) ONE (11:29)
[2022-02-28] MEDS ORDERED: Etomidate 40 mg/20 ml (2 MG/ML) 20 ml VIAL (40 mg) ONE (11:29)
[2022-02-28] MEDS ORDERED: Lorazepam PYXIS KEY ONE (12:23)
[2022-02-28] MEDS: Propofol 10 mg/ml 100 ML BTL 100 ML IV SCH ×5 (13:55→22:47)
[2022-02-28] MEDS: Chlorhexidine MOUTHWASH 0.12% 15 ML UDC TOPICAL SCH ×3 (13:55→20:07)
[2022-02-28] MEDS: Pantoprazole VIAL 40 MG VIAL IV SCH (13:55)
[2022-02-28 16:46] LABS: Blood Urea Nitrogen 9 mg/dL (6-24); CO2 Carbon Dioxide 35 mmol/L (22-32); Calcium 7.1 mg/dL (8.6-10.3); Chloride 96 mmol/L (101-111); Glucose 90 mg/dL (70-100); Sodium 131 mmol/L (135-145); eGFR CKD-EPI 73.2 (>60)
[2022-02-28] MEDS ORDERED: fentaNYL 100 mcg/2 ml 50 MCG/ML VIAL ONE (17:06)
[2022-02-28] MEDS ORDERED: fentaNYL 100 mcg/2 ml 50 MCG/ML VIAL IV SLOW PU ONE (17:44)
[2022-02-28 18:47] LABS: Potassium Redraw 2.8 mmol/L (3.5-5.0)
[2022-03-01 00:44] LABS: Blood Urea Nitrogen 12 mg/dL (6-24); CO2 Carbon Dioxide 31 mmol/L (22-32); Chloride 94 mmol/L (101-111); Glucose 67 mg/dL (70-100); Magnesium 1.4 mg/dL (1.9-2.7); Sodium 134 mmol/L (135-145); eGFR CKD-EPI 50.5 (>60)
[2022-03-01 00:49] LABS: Anion Gap 9 mmol/L (2-11)
[2022-03-01] MEDS: Propofol 10 mg/ml 100 ML BTL 100 ML IV SCH ×4 (00:57→07:47)
[2022-03-01] MEDS: Lactated Ringers 1000 ml BAG 1,000 ML IV SCH (01:12)
[2022-03-01] MEDS: Chlorhexidine MOUTHWASH 0.12% 15 ML UDC TOPICAL SCH ×6 (01:18→21:03)
[2022-03-01 02:19] LABS: Potassium, Whole Blood 2.6 mmol/L (3.4-4.5)
[2022-03-01 05:28] LABS: ALT 23 U/L (7-52); Albumin < 1.7 g/dL (3.2-5.2); Albumin/Globulin Ratio 0.5 (1-3); Alkaline Phosphatase 80 U/L (35-149); Blood Urea Nitrogen 13 mg/dL (6-24); CO2 Carbon Dioxide 26 mmol/L (22-32); Calcium 6.9 mg/dL (8.6-10.3); Chloride 95 mmol/L (101-111); Globulin 3.6 g/dL (2-4); Magnesium 1.4 mg/dL (1.9-2.7); Sodium 135 mmol/L (135-145); Total Protein 5.3 g/dL (6.4-8.9); eGFR CKD-EPI 39.6 (>60)
[2022-03-01 05:42] LABS: Glucose 41 mg/dL (70-100)
[2022-03-01 05:43] LABS: Anion Gap 14 mmol/L (2-11)
[2022-03-01] MEDS ORDERED: Thiamine 100 MG/ML 2 ml VIAL 250 MG in NS 0.9% 100 ml BAG 100 ML IV SCH (06:00)
[2022-03-01] MEDS ORDERED: Magnesium Sulfate 2 gm BAG 2 GM/50 ML BAG IVPB ONE ×2 (07:16→19:37)
[2022-03-01 07:18] LABS: ABS Lymphocytes 0.2 10^3/ul (1.0-4.8); Eosinophil % 0.7 %; Hematocrit 30 % (42-52); Hemoglobin 10.2 g/dL (14.0-18.0); Lymphocyte % 6.3 %; Mean Corpuscular HGB Conc 34 g/dL (31-36); Mean Corpuscular Hemoglobin 37 pg (27-31); Mean Corpuscular Volume 109 fL (80-94); Mean Platelet Volume 9.8 fL (7.4-10.4); Nucleated Red Blood Cells % 0.8; Platelet Count 66 10^3/uL (150-450); Red Blood Count 2.76 10^6 /uL (4.18-5.48); Red Cell Distribution Width 17 % (10-15); White Blood Count 3.2 10^3/uL (3.5-10.8)
[2022-03-01] MEDS: Norepinephrine 16MCG/ML BAGD5W 4,000 MCG/250 ML BAG IV SCH ×7 (07:39→22:47)
[2022-03-01] MEDS ORDERED: D5LR 1000 ml BAG 1,000 ML IV SCH (08:00)
[2022-03-01 08:08] LABS: C Reactive Protein 20.15 mg/L (<8.01)
[2022-03-01 08:32] LABS: Potassium, Whole Blood 2.8 mmol/L (3.4-4.5)
[2022-03-01 08:38] LABS: INR 2.99 (0.86-1.15)
[2022-03-01] MEDS: metroNIDAZOLE IV 500 MG/100ML 500 MG/100 ML BAG IVPB SCH ×2 (08:45→17:47)
[2022-03-01] MEDS: Thiamine 100 MG/ML 2 ml VIAL 100 MG in NS 0.9% 50 ML 50 ML IV SCH (08:45)
[2022-03-01] MEDS: Lactulose 30 ml UDC PO SCH ×4 (08:46→19:30)
[2022-03-01] MEDS: Enoxaparin 40 MG/0.4 ML SYR SUBCUT SCH (08:47)
[2022-03-01] MEDS ORDERED: cefTRIAXone 1 gm/50 mL D5W 1 GM/50 ML BAG IV SCH (09:00)
[2022-03-01 09:27] LABS: Erythrocyte Sed Rate 25 mm/Hr (0-14)
[2022-03-01] MEDS: KCL 20 MEQ/100 ML IVPREMIX 20 MEQ/100 ML BAG IV SCH ×2 (10:38→13:00)
[2022-03-01] MEDS: Albumin Human 25% 25 GM/100 ML IV SCH ×4 (11:18→14:12)
[2022-03-01] MEDS ORDERED: cefTRIAXone 1 gm/50 mL D5W 1 GM/50 ML BAG IV ONE (12:00)
[2022-03-01] MEDS ORDERED: Vancomycin per Pharmacy 1 EA NOTE FOLLOW UP SCH (12:00)
[2022-03-01] MEDS ORDERED: Vancomycin 1,000 MG in NS 0.9% 250 ml 250 ML IVPB ONE (12:00)
[2022-03-01] MEDS: Octreotide Acetate 500 MCG in NS 0.9% 100 ml BAG 100 ML IV SCH ×2 (12:28→21:22)
[2022-03-01] MEDS: Pantoprazole VIAL 40 MG VIAL IV SCH (13:27)
[2022-03-01] MEDS ORDERED: Vasopressin 100 UNITS in D5W 250 ml BAG 245 ML IV SCH (14:15)
[2022-03-01] MEDS ORDERED: Acetaminophen IV 1 GM/100ML 100 ML IV ONE (15:15)
[2022-03-01] MEDS ORDERED: .Amiodarone 24HR ONLY IV Protocol Order Note IV ONE (17:00)
[2022-03-01] MEDS ORDERED: Amiodarone 150 mg IVPREMIX 150 MG/100 ML BAG IV ONE ×2 (17:00)
[2022-03-01] MEDS ORDERED: Amiodarone 360 MG IVPREMIX 360 MG/200 ML BAG IV SCH ×2 (17:10→23:10)
[2022-03-01 17:52] LABS: Calcium 7.4 mg/dL (8.6-10.3); Magnesium 1.7 mg/dL (1.9-2.7); Potassium 3.5 mmol/L (3.5-5.0); eGFR CKD-EPI 21.3 (>60)
[2022-03-01] MEDS ORDERED: Albumin Human 5% 25 GM/500 ML BTL IV ONE (20:48)
[2022-03-01] MEDS: Albumin Human 5% 12.5 GM/250 ML BTL IV SCH ×2 (21:55→22:58)
[2022-03-02] MEDS: Lactulose 30 ml UDC PO SCH ×3 (00:18→08:16)
[2022-03-02] MEDS: metroNIDAZOLE IV 500 MG/100ML 500 MG/100 ML BAG IVPB SCH ×2 (00:36→08:17)
[2022-03-02] MEDS: Norepinephrine 16MCG/ML BAGD5W 4,000 MCG/250 ML BAG IV SCH ×4 (00:36→06:07)
[2022-03-02] MEDS: Chlorhexidine MOUTHWASH 0.12% 15 ML UDC TOPICAL SCH ×3 (00:59→08:17)
[2022-03-02] MEDS ORDERED: Albuterol HFA INHALER 8 gm MDI INH PRN (01:35)
[2022-03-02 05:37] LABS: Hematocrit 34 % (42-52); Hemoglobin 11.4 g/dL (14.0-18.0); Mean Corpuscular HGB Conc 33 g/dL (31-36); Mean Corpuscular Hemoglobin 37 pg (27-31); Mean Corpuscular Volume 110 fL (80-94); Mean Platelet Volume 10.7 fL (7.4-10.4); Platelet Count 63 10^3/uL (150-450); Red Cell Distribution Width 18 % (10-15); White Blood Count 20.1 10^3/uL (3.5-10.8)
[2022-03-02] MEDS ORDERED: Vancomycin 1,500 MG in NS 0.9% 250 ml 250 ML IVPB SCH (06:00)
[2022-03-02 06:01] LABS: ABS Eosinophils 0.6 10^3/ul (0-0.6); ABS Lymphocytes 1.3 10^3/ul (1.0-4.8); ABS Monocytes 1.2 10^3/ul (0-0.8); ABS Nucleated RBC 0.3 10^3/ul; Eosinophil % 2.8 %; Lymphocyte % 6.4 %; Nucleated Red Blood Cells % 1.6
[2022-03-02 06:12] LABS: Polychromasia 1+
[2022-03-02 06:14] LABS: Smudge Cells Present
[2022-03-02 06:17] LABS: Albumin 2.4 g/dL (3.2-5.2)
[2022-03-02 06:18] LABS: Calcium 6.8 mg/dL (8.6-10.3); Potassium 3.8 mmol/L (3.5-5.0); Total Bilirubin 11.2 mg/dL (0.2-1.0)
[2022-03-02 06:23] LABS: Albumin/Globulin Ratio 0.7 (1-3); Globulin 3.3 g/dL (2-4); Total Protein 5.7 g/dL (6.4-8.9)
[2022-03-02 07:01] LABS: Acetone Level Not Detected; Ethanol 12 mg/dL; Isopropanol Not Detected
[2022-03-02] MEDS ORDERED: Norepinephrine *QUAD STRENGTH* 16 mg/250 mL NS per protocol IV SCH (07:30)
[2022-03-02 07:49] LABS: eGFR CKD-EPI 14.9 (>60)
[2022-03-02] MEDS: Octreotide Acetate 500 MCG in NS 0.9% 100 ml BAG 100 ML IV SCH (08:03)
[2022-03-02] MEDS: Albumin Human 25% 25 GM/100 ML IV SCH ×3 (09:06→10:24)
[2022-03-02] MEDS ORDERED: Dextrose 50% VIAL 50 ml IV PRN (09:29)
[2022-03-02] MEDS ORDERED: Dextrose 50% Syringe 50 ml 25 GM/50 ML SYRINGE IV PUSH PRN (09:30)
[2022-03-02] MEDS: Thiamine 100 MG/ML 2 ml VIAL 100 MG in NS 0.9% 50 ML 50 ML IV SCH (09:42)
[2022-03-02] MEDS ORDERED: Lorazepam PYXIS KEY PRN (11:06)
[2022-03-02] MEDS ORDERED: LORazepam 2 mg VIAL 1 ml IV PUSH PRN (11:06)
[2022-03-02] MEDS ORDERED: Atropine 1% (ORAL/SL) 15 ML BTL SL PRN (11:06)
[2022-03-02] MEDS ORDERED: Morphine 10 MG/ML VIAL (1 ml) IV PRN (11:24)
[2022-03-02 11:45] VITALS: BP 43/28
[2022-03-02] MEDS ORDERED: cefTRIAXone 2 GM ADDV.VIAL 2 GM in NS 0.9% 100 ml BAG 100 ML IV SCH (12:00)
[2022-03-04] MEDS ORDERED: Vancomycin Trough Check NOTE FOLLOW UP ONE (05:30)
== END 2022-03-02 13:51 | disposition expired | DRG 280 ==
LOC: ED 21:06 → SUATTDRO 02-28 03:43 → EDHOLD 02-28 03:43 → ICU 02-28 11:24
PROVIDERS: ADMIT Internal Medicine; ATTEND Internal Medicine Critical Care Medicine